=== PATIENT | male | born 1980 | race African-American/Black ===

== ENCOUNTER 2016-11-05 13:26 | Emergency (ER) | payer MEDICAID ==
[~2016-11-05] VITALS: Ht 172.7 cm; Wt 64.0 kg
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
== END 2016-11-05 15:11 | disposition home or self-care (01) ==
LOC: CED 13:26 → CFTX 13:26
DX: S63.602A Unspecified sprain of left thumb, initial encounter (principal); Y04.2XXA Assault by strike against or bumped into by another person, initial encounter; Y92.009 Unspecified place in unspecified non-institutional (private) residence as the place of occurrence of the external cause
CPT/HCPCS: 29125; 73140; 99283